=== PATIENT | female | born 1965 | race Caucasian/White ===

== ENCOUNTER → 2018-03-20 | Outpatient (CLI) | payer BC, OTHER ==
[~2018-03-20] MED LIST: CYCL-259 PO; FLUO10TA PO; FLUO20TA25 PO; GABA300C10 PO; LACT1CAP35 PO; MELO7.5T5 PO; OXYC-302 PO; TRAZ50TA18 PO
[2018-03-20 15:55] LABS: BASOPHILS # (AUTO) 0.04 x10^3/uL (0-0.1); BASOPHILS % (AUTO) 1 % (0-1); EOSINOPHILS # (AUTO) 0.16 x10^3/uL (0-0.4); EOSINOPHILS % (AUTO) 2 % (1-7); LYMPHOCYTES # (AUTO) 2.24 x10^3/uL (1-3.4); LYMPHOCYTES % (AUTO) 25 % (22-44); MD NO; MEAN CORPUSCULAR HEMOGLOBIN 32.1 pg (27.0-34.8); MEAN CORPUSCULAR HGB CONC 33.6 g/dL (32.4-35.8); MEAN CORPUSCULAR VOLUME 95.6 fL (80-100); MEAN PLATELET VOLUME 8.5 fL (7.4-10.4); MONOCYTES # (AUTO) 0.84 x10^3/uL (0.2-0.8); MONOCYTES % (AUTO) 9 % (2-9); NEUTROPHILS # (AUTO) 5.66 x10^3/uL (1.8-6.8); NEUTROPHILS % (AUTO) 63 % (42-75); PLATELET COUNT 273 x10^3/uL (130-400); RED BLOOD COUNT 4.57 x10^6/uL (3.82-5.3); RED CELL DISTRIBUTION WIDTH 13.9 % (9.6-15.2)
[2018-03-20 16:02] LABS: INTERNATIONAL NORMALIZED RATIO 0.99 (0.93-1.1); PROTHROMBIN TIME 10.3 Seconds (9.6-11.5)
[2018-03-20 16:03] LABS: ANION GAP 8 mmol/L (5-15); CHLORIDE 104 mmol/L (98-107); CREATININE 0.78 mg/dL (0.55-1.02)
== END | disposition home or self-care (01) ==
LOC: STAR 14:58
PROVIDERS: ATTEND Neurological Surgery
DX: Z01.818 Encounter for other preprocedural examination (principal); M47.12 Other spondylosis with myelopathy, cervical region
CPT/HCPCS: 36415; 80048; 85025; 85610; 85730

== ENCOUNTER 2018-03-25 07:08 | Inpatient (IN) | payer BC, OTHER ==
[~2018-03-25] VITALS: Ht 172.7 cm; Wt 88.3 kg
[~2018-03-25 07:08] MED LIST changes: -GABA300C10 PO; -MELO7.5T5 PO; -OXYC-302 PO
[2018-03-25] MEDS ORDERED: LACTATED RINGERS 1,000 ML IV SCH (08:06)
[2018-03-25] MEDS ORDERED: ACETAMINOPHEN 500 MG TABLET PO ONE (08:30)
[2018-03-25] MEDS ORDERED: OxyconTIN ER 20 MG TAB.ER PO ONE (08:30)
[2018-03-25] MEDS ORDERED: GABAPENTIN 300 MG CAPSULE PO ONE (08:30)
[2018-03-25] MEDS ORDERED: ONDANSETRON ODT 8 MG PO ONE (08:30)
[2018-03-25 08:48] VITALS: BP 126/83
[2018-03-25] MEDS ORDERED: FENTANYL PF 250 MCG/5ML ONE (09:46)
[2018-03-25] MEDS ORDERED: MIDAZOLAM 1 MG/ML, 2ML ONE (09:46)
[2018-03-25] MEDS ORDERED: PROPOFOL 10 MG/ML, 20ML ONE (09:48)
[2018-03-25] MEDS ORDERED: WATER-INJECTION,STERILE 10 ML IV ONE (09:49)
[2018-03-25] MEDS ORDERED: CEFAZOLIN 1,000 MG ONE ×2 (09:49)
[2018-03-25] MEDS ORDERED: DEXAMETHASONE 4 MG/ML, 1ML ONE ×3 (09:52→11:04)
[2018-03-25] MEDS ORDERED: THROMBIN 5,000 UNIT VIAL TP ONE (10:38)
[2018-03-25] MEDS ORDERED: BUPIVACAINE/PF 0.5% ONE (10:38)
[2018-03-25] MEDS ORDERED: BACITRACIN 50,000 UNIT ONE (10:39)
[2018-03-25] MEDS ORDERED: NEOSPORIN OINT, 15GM ONE (10:39)
[2018-03-25] MEDS ORDERED: EPINEPHRINE 1 MG/ML, 1ML ONE (10:39)
[2018-03-25] MEDS ORDERED: PHENYLEPHRINE 10 MG/ML ONE (10:56)
[2018-03-25] MEDS ORDERED: SUCCINYLCHOLINE 20 MG/ML, 10ML ONE (10:56)
[2018-03-25] MEDS ORDERED: PROPOFOL 50 ML ONE ×3 (11:01→13:18)
[2018-03-25] MEDS ORDERED: HALOPERIDOL 5 MG/ML IV PRN (12:00)
[2018-03-25] MEDS ORDERED: LABETALOL 5MG/ML, 20ML IV PRN ×2 (12:00→17:00)
[2018-03-25] MEDS ORDERED: MORPHINE SULFATE 4 MG/ML, 1ML IVPush PRN (12:00)
[2018-03-25] MEDS ORDERED: PROMETHAZINE 25 MG/ML, 1ML IV PRN (12:00)
[2018-03-25] MEDS ORDERED: OXYcodone 5 MG/5 ML ORAL.SOL UDC PO PRN (12:00)
[2018-03-25] MEDS ORDERED: MEPERIDINE/PF 25MG/0.5ML IVPush PRN (12:00)
[2018-03-25] MEDS ORDERED: hydrALAzine 20 MG/ML, 1ML IV PRN (12:00)
[2018-03-25] MEDS ORDERED: DIAZEPAM 5 MG/ML, 2ML IVPush PRN (12:00)
[2018-03-25] MEDS ORDERED: FENTANYL PF 100 MCG/2ML ONE ×2 (12:31→15:42)
[2018-03-25] MEDS: FENTANYL PF 100 MCG/2ML IV PRN ×4 (15:45→16:00)
[2018-03-25] MEDS ORDERED: MAGNESIUM HYDROXIDE 8%, 30ML UDC PO PRN (17:00)
[2018-03-25] MEDS ORDERED: KETOROLAC 30 MG/1 ML IV ONE (17:00)
[2018-03-25] MEDS ORDERED: DIPHENHYDRAMINE 50 MG/ML, 1ML IVPush PRN (17:00)
[2018-03-25] MEDS ORDERED: METHOCARBAMOL 750 MG TABLET PO PRN (17:00)
[2018-03-25] MEDS ORDERED: CYCLOBENZAPRINE 10 MG TABLET PO PRN (17:00)
[2018-03-25] MEDS ORDERED: BISACODYL 10 MG SUPP PR PRN (17:00)
[2018-03-25] MEDS ORDERED: ONDANSETRON 2MG/ML, 2ML IV PRN (17:00)
[2018-03-25] MEDS ORDERED: morphine SULFATE 10 MG/ML, 1ML IV PRN (17:00)
[2018-03-25] MEDS ORDERED: ONDANSETRON ODT 4 MG PO PRN (17:00)
[2018-03-25] MEDS ORDERED: PROMETHAZINE 25 MG SUPP PR PRN (17:00)
[2018-03-25] MEDS: CYCLOBENZAPRINE 10 MG TABLET PO SCH (18:40)
[2018-03-25 20:30] VITALS: BP 123/82
[2018-03-25] MEDS: GABAPENTIN 300 MG CAPSULE PO SCH (20:41)
[2018-03-25] MEDS: CEFAZOLIN PMX 1GM/50ML 50 ML IVPB SCH (20:41)
[2018-03-25] MEDS: OXYcodone/APAP 5/325MG TABLET PO PRN (20:58)
[2018-03-25] MEDS ORDERED: KETOROLAC 30 MG/1 ML IM SCH (23:00)
[2018-03-25] MEDS: NS + 20MEQ KCL 1,000 ML IV SCH (23:20)
[2018-03-26 00:26] VITALS: BP 124/74
[2018-03-26] MEDS: CYCLOBENZAPRINE 10 MG TABLET PO SCH ×2 (02:12→10:05)
[2018-03-26 03:56] VITALS: BP 130/81
[2018-03-26] MEDS: CEFAZOLIN PMX 1GM/50ML 50 ML IVPB SCH (04:00)
[2018-03-26] MEDS: OXYcodone/APAP 5/325MG TABLET PO PRN ×2 (04:33→12:29)
[2018-03-26 05:46] LABS: BASOPHILS # (AUTO) 0.02 x10^3/uL (0-0.1); BASOPHILS % (AUTO) 0 % (0-1); EOSINOPHILS % (AUTO) 0 % (1-7); LYMPHOCYTES # (AUTO) 1.24 x10^3/uL (1-3.4); LYMPHOCYTES % (AUTO) 9 % (22-44); MD NO; MEAN CORPUSCULAR HEMOGLOBIN 32.1 pg (27.0-34.8); MEAN CORPUSCULAR HGB CONC 33.4 g/dL (32.4-35.8); MEAN CORPUSCULAR VOLUME 96.2 fL (80-100); MEAN PLATELET VOLUME 8.5 fL (7.4-10.4); MONOCYTES # (AUTO) 0.95 x10^3/uL (0.2-0.8); MONOCYTES % (AUTO) 7 % (2-9); NEUTROPHILS # (AUTO) 11.45 x10^3/uL (1.8-6.8); NEUTROPHILS % (AUTO) 84 % (42-75); PLATELET COUNT 265 x10^3/uL (130-400); RED BLOOD COUNT 4.04 x10^6/uL (3.82-5.3); RED CELL DISTRIBUTION WIDTH 14.3 % (9.6-15.2)
[2018-03-26 05:51] LABS: ANION GAP 5 mmol/L (5-15); CALCIUM 8.7 mg/dL (8.5-10.1); CHLORIDE 105 mmol/L (98-107); CREATININE 0.69 mg/dL (0.55-1.02)
[2018-03-26] MEDS ORDERED: KETOROLAC 30 MG/1 ML IM/IV SCH (07:00)
[2018-03-26 07:38] VITALS: BP 127/83
[2018-03-26] MEDS: GABAPENTIN 300 MG CAPSULE PO SCH (07:39)
[2018-03-26] MEDS ORDERED: FLUOXETINE 10 MG CAP PO SCH (09:00)
[2018-03-26] MEDS ORDERED: SENNA/DOCUSATE TABLET PO SCH (09:00)
[2018-03-26] MEDS: NS + 20MEQ KCL 1,000 ML IV SCH (11:17)
[2018-03-26 13:13] VITALS: BP 127/74
[2018-03-26 15:07] VITALS: BP 105/66
[2018-03-26] MEDS ORDERED: MELO7.5T5 PO (15:30)
[2018-03-26] MEDS ORDERED: GABA300C10 PO (15:31)
[2018-03-26] MEDS ORDERED: OXYC-302 PO (15:31)
[2018-03-26] MEDS ORDERED: CYCL-259 PO (15:32)
[2018-03-27] MEDS ORDERED: MELOXICAM 15 MG TABLET PO SCH (09:00)
== END 2018-03-26 15:54 | disposition home or self-care (01) | DRG 473 ==
LOC: OUT 07:08 → EDSTATUS 10:30 → 4NOR 16:45 → OUT 17:33 → DCLOUNGE 03-26 15:36
PROVIDERS: ADMIT Neurological Surgery; ATTEND Neurological Surgery
PROC: 0RB30ZZ Excision of Cervical Vertebral Disc, Open Approach (ICD-10-PCS; 2018-03-25)
PROC: 0RG20A0 Fusion of 2 or more Cervical Vertebral Joints with Interbody Fusion Device, Anterior Approach, Anterior Column, Open Approach (ICD-10-PCS; principal; 2018-03-25 10:30)
DX: M47.12 Other spondylosis with myelopathy, cervical region (principal); F17.210 Nicotine dependence, cigarettes, uncomplicated; M47.22 Other spondylosis with radiculopathy, cervical region; Z88.1 Allergy status to other antibiotic agents; Z72.89 Other problems related to lifestyle; Z83.3 Family history of diabetes mellitus
CPT/HCPCS: 36415; 72040; 80048; 85025; 95938; 95941; C1713; C1776; J0171; J0690; J1100; J1885; J2250; J2704; J3010; J3360; J3480; J3490; Q0162; C1762; J0330; J2370; J7120